=== PATIENT | female | born 1955 | race Caucasian/White ===

== ENCOUNTER 2017-04-08 14:08 | Emergency (ER) | payer BC ==
--- NOTE | 2017-04-08 15:15 | Emergency Department Record ---
History of Present Illness - General Chief Complaint: Dizziness Stated Complaint: DIZZYNESS,LIGHTHEAD, INCREASED HR Time Seen by Provider: 04/08/17 14:51 Source: Patient, RN notes reviewed Mode of Arrival: Ambulatory - History of Present Illness Initial Comments: last night dizzy spell and neck pain and a history of tachycardia and she had her heart ablation. Light headed more than dizziness. smokes cigarettes. Seen at [facility] and sent to the ED MD Complaint: Dizziness Onset/Timin -: Days(s) Description: Lightheadedness, "Room spinning" History of Same: No Improves With: Other Worsens With: Movement - [place] Coma Scale Eye Response: (4) Open spontaneously Motor Response: (6) Obeys commands Verbal Response: (5) Oriented Kvng Total: 15 - Related Data Home Medications Medication Instructions Recorded Confirmed Last Taken Fluticasone Propionate [Flonase] 2 spray EACH NARES DAILY 04/08/17 04/08/17 Simvastatin [Zocor] 10 mg PO QHS 04/08/17 04/08/17 04/07/17 Previous Rx's Medication Instructions Recorded Meclizine HCl [Antivert] 25 mg PO Q8H #20 tablet 04/08/17 Allergies Allergy/AdvReac Type Severity Reaction Status Date / Time No Known Drug Allergies Allergy Verified 04/08/17 14:19 Travel Screening - Travel/Exposure Within Last 30 Days Have you traveled within the last 30 days?: No - Travel/Exposure Within Last Year Have you traveled outside the [place] in the last year?: No - Additonal Travel Details Have you been exposed to anyone with a communicable illness?: No - Travel Symptoms Symptom Screening: None Past Medical History - SOCIAL HISTORY Smoking Status: Current some day smoker Alcohol Use: None Drug Use: None - RESPIRATORY Hx Respiratory Disorders: No - CARDIOVASCULAR Hx Cardio Disorders: Yes Hx Palpitations: Yes (tachycardia with ablation) Comment:: High cholesterol - NEURO Hx Neuro Disorders: Yes Comment:: Numbness in left arm and hand. sees neurosurgeon tomorrow. - GI Hx GI Disorders: No - Hx Genitourinary Disorders: No - ENDOCRINE Hx Endocrine Disorders: No - MUSCULOSKELETAL Hx Musculoskeletal Disorders: No - PSYCH Hx Psych Problems: No - HEMATOLOGY/ONCOLOGY Hx Hematology/Oncology Disorders: No Family Medical History Any Significant Family History?: Yes Hx Cancer: Mother Hx Heart Disease: Father Physical Exam - General General Appearance: Alert, Oriented x3, Cooperative, No acute distress - Head Head exam: Normal inspection - Eye Eye exam: Normal appearance, PERRL Pupils: Normal accommodation - ENT ENT exam: Normal exam, Mucous membranes moist, Normal external ear exam, Normal orophraynx, TM's normal bilaterally Ear exam: Normal external inspection. negative: External canal tenderness Nasal Exam: Normal inspection. negative: Discharge, Sinus tenderness Mouth exam: Normal external inspection, Tongue normal Teeth exam: Normal inspection. negative: Dental caries Throat exam: Normal inspection. negative: Tonsillar erythema, Tonsillar exudate - Neck Neck exam: Normal inspection, Full ROM. negative: Tenderness - Respiratory Respiratory exam: Normal lung sounds bilaterally. negative: Respiratory distress - Cardiovascular Cardiovascular Exam: Regular rate, Normal rhythm, Normal heart sounds - GI/Abdominal GI/Abdominal exam: Soft, Normal bowel sounds. negative: Tenderness - Rectal Rectal exam: Deferred - exam: Deferred - Extremities Extremities exam: Normal inspection, Full ROM, Normal capillary refill. negative: Tenderness - Back Back exam: Reports: Normal inspection, Full ROM. Denies: Muscle spasm, Rash noted, Tenderness - Neurological Neurological exam: Alert, Normal gait, Oriented X3, Reflexes normal - Psychiatric Psychiatric exam: Normal affect, Normal mood - Skin Skin exam: Dry, Intact, Normal color, Warm Course Vital Signs 04/08/17 14:21 Temperature 98.1 F Pulse Rate 118 H Respiratory 18 Rate Blood Pressure 138/91 Pulse Ox 97 Medical Decision Making - Data Complexity MDM Data: Labs Ordered and/or Reviewed (negative,WBC 9,800, hg 16.4), X-Ray Ordered and/or Reviewed (CT head negative), EKG Ordered and/or Reviewed ( reviewedEKG's from [facility] first one rate 108,NSR no acute changes, second EKG NSR, rate less than 71 and no acute changes) - Lab Data Result diagrams: 04/08/17 15:25 04/08/17 15:25 Disposition Clinical Impression: Dizziness, Dehydration Disposition: Home, Self-Care Condition: (1) Good Instructions: Dizziness (ED) Additional Instructions: follow up with family in one week Prescriptions: Meclizine HCl [Antivert] 25 mg PO Q8H #20 tablet Forms: Patient Portal Access Time of Disposition: 16:15 Quality - Quality Measures Quality Measures: N/A - Blood Pressure Screening Does Patient Have Any of the Following: No Blood Pressure Classification: Hypertensive Reading Systolic Measurement: 138 Diastolic Measurement: 91 Screening for High Blood Pressure: < First Hypertensive BP, F/U Documented > [ G8950] First Hypertensive Follow-up Interventions: Referral to alternative/primary care provider.
[2017-04-08] MEDS ORDERED: 0.9 % SODIUM CHLORIDE 1000ML 1,000 ML IV SCH (15:30)
[2017-04-08 15:33] LABS: BASO % 0.5 % (0-6); EOS % 0.5 % (0-6); GRAN % 72.1 % (47-80); HEMATOCRIT 47.9 % (35.0-47.0); HEMOGLOBIN 16.4 gm/dl (11.6-16.0); LYMPH % 20.3 % (16-45); MEAN CELL VOLUME 92.8 fl (81-97); MEAN CORPUSCULAR HGB CONC 34.2 g/dl (32-36); MEAN PLATELET VOLUME 9.6 fl (7.4-10.4); MONO % 6.6 % (0-9); PLATELET COUNT 220 K/uL (130-400); RED BLOOD COUNT 5.16 M/uL (3.80-5.40); WHITE BLOOD COUNT W/O DIFF 9.8 K/uL (4.2-12.2)
[2017-04-08 15:51] LABS: BLOOD UREA NITROGEN 18.4 mg/dL (17.4-49.2); CREATININE 0.7 mg/dL (0.5-0.9); EST GLOMERULAR FILTRATION RATE > 60 mL/min; GLUCOSE,RANDOM 136 mg/dL (74-109)
[2017-04-08 16:01] LABS: MEAN CORPUSCULAR HEMOGLOBIN 31.7 pg (27-33)
[2017-04-08 16:04] LABS: CKMB 2.4 ng/mL (<3.77); THYROID STIMULATING HORMONE 1.53 uIU/mL (0.270-4.20)
[2017-04-08 16:07] LABS: TROPONIN I < 0.30 ng/mL (0.00-0.300)
--- NOTE | 2017-04-09 08:38 | CT SCAN REPORT ---
EXAM: CT OF THE BRAIN WITHOUT CONTRAST HISTORY: VERTIGO. TECHNIQUE: Sequential axial images were obtained from the foramen magnum to the vertex without contrast administration. FINDINGS: The brain volume is normal. No large territorial infarct, hemorrhage , mass effect, or midline shift. No extraaxial fluid collection. The orbits, paranasal sinuses, and mastoid air cells are normal. IMPRESSION: NO ACUTE INTRACRANIAL ABNORMALITY IS APPRECIATED. JOB NUMBER: [id number] MTDD
== END 2017-04-08 16:56 | disposition home or self-care (01) ==
LOC: ER 14:08
DX: E86.0 Dehydration (principal); R42 Dizziness and giddiness; M54.2 Cervicalgia; R00.0 Tachycardia, unspecified; F17.210 Nicotine dependence, cigarettes, uncomplicated
CPT/HCPCS: 70450; 80048; 82553; 84443; 84484; 85025; 99284

== ENCOUNTER 2017-04-13 13:24 | Emergency (ER) | payer BC ==
--- NOTE | 2017-04-13 14:05 | Emergency Department Record ---
History of Present Illness - General Chief complaint: Weakness Stated complaint: SHAKY, HEAD ACHE BACK OF HEAD, LT SIDE WEAKNESS Time Seen by Provider: 04/13/17 13:27 Source: Patient, Family Mode of Arrival: Ambulatory Limitations: No limitations - History of Present Illness Initial comments: 61 yo female presents with headaches and neck pain for over two weeks. The pain is a dull ache at the base of the skull to the posterior upper neck. No trauma. The onset was gradual onset. It seems worse with certain positions. She was seen the ER and had a HCT scan that was negative. No weakness, numbness , tingling, vision changes, speech changes, voice changes, swallowing changes. She has chronic left arm.hand numbness and is scheduled for surgery in 2 weeks for nerve entrapment. This has not changed. No weakness, new numbness. She feels like she has a dry mouth. She feels tremulous at times. [facility] cough and sore throat about two week ago. alf she has difficulty maintaining weight. Her recent weight was 90. I weighed her today personally and she was 92lb 8 ounce. No edema. PCP [facility]. Onset/Timin -: Week(s) Location: Generalized Severity: Mild Consistency: Intermittent Improves with: None Worsens with: None Associated Symptoms: Headaches, Other - Kvng Coma Scale Eye Response: (4) Open spontaneously Motor Response: (6) Obeys commands Verbal Response: (5) Oriented [place] Total: 15 - Symptoms of Stroke Symptoms of stroke: Dizziness, Numbness - Related Data Previous Rx's Medication Instructions Recorded Meclizine HCl [Antivert] 25 mg PO Q8H #20 tablet 04/08/17 Allergies Allergy/AdvReac Type Severity Reaction Status Date / Time No Known Drug Allergies Allergy Verified 04/13/17 13:37 Travel Screening - Travel/Exposure Within Last 30 Days Have you traveled within the last 30 days?: No Review of Systems Constitutional: Reports: Weakness. Denies: Chills, Fever, Malaise Eyes: Denies: Eye discharge, Eye pain, Photophobia, Vision change ENT: Reports: Throat pain. Denies: Congestion, Ear pain, Epistaxis Respiratory: Reports: Cough. Denies: Dyspnea, Hemoptysis, Stridor, Wheezes Cardiovascular: Denies: Chest pain, Palpitations, Syncope Endocrine: Reports: Fatigue. Denies: Polydipsia, Polyuria Gastrointestinal: Denies: Abdominal pain, Diarrhea, Nausea, Vomiting Genitourinary: Denies: Dyspareunia, Dysuria, Urgency Musculoskeletal: Reports: Myalgia. Denies: Arthralgia, Back pain, Joint swelling, Neck pain Skin: Denies: Bruising, Change in color, Rash Neurological: Reports: Headache, Numbness (chronic ), Tremors. Denies: Abnormal gait, Confusion, Paresthesias, Seizure, Tingling, Vertigo, Weakness Psychiatric: Reports: Anxiety. Denies: Depression Hematological/Lymphatic: Denies: Anemia, Blood Clots, Easy bleeding, Easy bruising, Swollen glands Past Medical History - SOCIAL HISTORY Smoking Status: Current some day smoker Alcohol Use: None Drug Use: None - RESPIRATORY Hx Respiratory Disorders: No - CARDIOVASCULAR Hx Cardio Disorders: Yes Hx Palpitations: Yes (tachycardia with ablation) Comment:: High cholesterol - NEURO Hx Neuro Disorders: Yes Comment:: numbness in left arm - GI Hx GI Disorders: No - Hx Genitourinary Disorders: No - ENDOCRINE Hx Endocrine Disorders: No - MUSCULOSKELETAL Hx Musculoskeletal Disorders: No - PSYCH Hx Psych Problems: No - HEMATOLOGY/ONCOLOGY Hx Hematology/Oncology Disorders: No Family Medical History Any Significant Family History?: Yes Hx Cancer: Mother Hx Heart Disease: Father Physical Exam - General General Appearance: Alert, Oriented x3, Cooperative, No acute distress Limitations: No limitations - Head Head exam: Normal inspection - Eye Eye exam: Normal appearance, PERRL, EOMI. negative: Conjunctival injection, Nystagmus, Periorbital swelling - ENT ENT exam: Normal exam, Normal orophraynx. negative: Mucous membranes moist Ear exam: Normal external inspection Nasal Exam: Normal inspection. negative: Discharge Mouth exam: Normal external inspection Teeth exam: Normal inspection Throat exam: Normal inspection. negative: Tonsillar erythema, Tonsillomegaly, Tonsillar exudate, R peritonsillar mass, L peritonsillar mass - Neck Neck exam: Normal inspection, Full ROM, Tenderness (tender at base of the skull) . negative: Lymphadenopathy, Meningismus - Respiratory Respiratory exam: Normal lung sounds bilaterally. negative: Respiratory distress - Cardiovascular Cardiovascular Exam: Regular rate, Normal rhythm, Normal heart sounds Peripheral Pulses: 2+: Radial (R), Radial (L) - GI/Abdominal GI/Abdominal exam: Soft. negative: Tenderness - Rectal Rectal exam: Deferred - exam: Deferred - Extremities Extremities exam: Normal inspection, Full ROM, Normal capillary refill. negative: Pedal edema, Tenderness - Back Back exam: Reports: Normal inspection, Full ROM. Denies: CVA tenderness (R), CVA tenderness (L), Muscle spasm, Paraspinal tenderness, Rash noted, Tenderness , Vertebral tenderness - Neurological Neurological exam: Alert, CN II-XII intact, Motor sensory deficit (altered left hand 4th and 5th fingers, chronic per patient), Normal gait, Oriented X3, Reflexes normal, Other (Normal [place], Normal FTN, Normal Tracking, Normal walking, ). negative: Abnormal gait, Altered - Psychiatric Psychiatric exam: Normal affect, Normal mood. negative: Agitated, Anxious - Skin Skin exam: Dry, Intact, Normal color, Warm Course Vital Signs 04/13/17 13:31 Temperature 97.7 F Pulse Rate 103 H Respiratory 22 Rate Blood Pressure 173/91 Pulse Ox 96 - Reevaluation(s) Reevaluation #1: The EMR was reviewed No acute changes on the prior ED visit CBC, CMP, TSH The patient's neuro examination was normal as tested Her HCT was normal last visit for symptoms that have been ongoing over two weeks with gradual onset 04/13/17 14:17 UA is negative 04/13/17 14:[address] was reviewed degenerative changes noted as well as foraminal stenosis she has emphysema changes and a asymmetric lung nodule in the apex of the lung she was informed of the results as well as the need for follow up for a CT chest to rule out mass, nodules, tumors she has a neurosurgeon. she was told to follow up with her PCP or NS for additional imaging with an MRI if the pain continues 04/13/17 16:01 Disposition Disposition: Discharge Clinical Impression: Cervical strain, acute Qualifiers: Encounter type: initial encounter Qualified Code(s): S16.1XXA - Strain of muscle, fascia and tendon at neck level, initial encounter Disposition: Home, Self-Care Condition: (1) Good Instructions: Cervical Strain (ED) Additional Instructions: Call your doctor for follow up of today's tests You will need an outpatient CT scan of the chest to evaluate your lungs and the nodule in your lung You may need additional tests on your neck if the pain continues Review the CT with your doctor or neurosurgeon Take the copy of the CT with your to your appointments that your were provided Forms: Patient Portal Access Time of Disposition: 16:03 Quality - Quality Measures Quality Measures: N/A - Blood Pressure Screening Does Patient Have Any of the Following: No Blood Pressure Classification: Hypertensive Reading Systolic Measurement: 173 Diastolic Measurement: 91 Screening for High Blood Pressure: < Pre-Hypertensive BP, F/U Documented > [ G8950] Pre-Hypertensive Follow-up Interventions: Referral to alternative/primary care provider.
[2017-04-13 14:39] LABS: URINE COLOR STRAW
[2017-04-13 14:42] LABS: URINE APPEARANCE CLEAR
[2017-04-13 14:43] LABS: URINE BILIRUBIN NEGATIVE (NEGATIVE); URINE GLUCOSE (UA) NEGATIVE (NEGATIVE); URINE KETONE NEGATIVE (NEGATIVE); URINE NITRITE NEGATIVE (NEGATIVE); URINE PROTEIN NEGATIVE (NEGATIVE)
[2017-04-13 14:44] LABS: URINE BLOOD NEGATIVE (NEGATIVE); URINE LEUKOCYTE ESTERASE NEGATIVE (NEGATIVE); URINE UROBILINOGEN 0.2 E.U./dL (0.20 - 1.00)
--- NOTE | 2017-04-14 15:21 | CT SCAN REPORT ---
EXAM: CT SCAN CERVICAL SPINE WO CONTRAST HISTORY: PAIN POSTERIOR NECK. TECHNIQUE: Axial CT scan of the entire cervical spine performed without IV contrast. COMPARISON: None. ENCOUNTER: Initial. FINDINGS: Apical pleural thickening is seen bilaterally with bullous disease suggesting underlying emphysema. On the lower most scans, there is asymmetric, somewhat spiculated, soft tissue density along the upper right apex laterally. This may just be asymmetric apical pleural thickening but a pleural-based mass cannot be excluded. Follow-up chest CT with contrast may be useful for further evaluation of this. No definite fracture of the cervical spine identified. No prevertebral soft tissue swelling is seen. There is narrowing of the fourth through sixth cervical interspaces, most marked at the fifth, with associated hypertrophic spurring. Degenerative change seen at the odontoid/anterior arch of C1 articulation as well. There is some foraminal stenosis of C4 on the left and C5 bilaterally. IMPRESSION: 1. NO DEFINITE FRACTURE OR PREVERTEBRAL SOFT TISSUE SWELLING SEEN IN THE CERVICAL SPINE. 2. MULTILEVEL DEGENERATIVE CHANGES IN THE CERVICAL SPINE DETAILED ABOVE. 3. 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 PLEURAL THICKENING IN THE APICES. ASYMMETRIC PLEURAL-BASED SOFT TISSUE DENSITY RIGHT APICAL REGION LATERALLY ON THE LOWER MOST SCAN, NONSPECIFIC. FOLLOW-UP NONEMERGENT CHEST CT WOULD PROBABLY BE USEFUL FOR FURTHER EVALUATION. JOB NUMBER: [id number] MTDD
== END 2017-04-13 16:15 | disposition home or self-care (01) ==
LOC: ER 13:24
DX: S16.1XXA Strain of muscle, fascia and tendon at neck level, initial encounter (principal); M54.2 Cervicalgia; R51 Headache; X58.XXXA Exposure to other specified factors, initial encounter
CPT/HCPCS: 72125; 81003; 87880; 99283; 99284